=== PATIENT | male | born 1985 | race African-American/Black ===

== ENCOUNTER 2019-05-24 10:59 | Emergency (ER) | payer MEDICAID ==
[2019-05-24] MEDS ORDERED: levETIRAcetam 500 MG/5 ML SDV ONE (11:00)
[2019-05-24] MEDS ORDERED: LORazepam 2 MG/ML SDV ONE ×2 (11:00→11:16)
[2019-05-24] MEDS ORDERED: 50% Dextrose in Water 50 ML Syringe ONE ×2 (11:00→13:09)
[2019-05-24] MEDS ORDERED: Succinylcholine 200 MG/10 ML MDV ONE (11:00)
[2019-05-24] MEDS ORDERED: Sodium Chloride 0.9% 100 ML IV ONE (11:00)
[2019-05-24] MEDS ORDERED: Adenosine 6 MG/2 ML SDV ONE (11:00)
[2019-05-24] MEDS ORDERED: Insulin Regular, Human 100 Units/ML 3 ML Vial ONE ×2 (11:00→13:06)
[2019-05-24] MEDS ORDERED: FOSPHENYTOIN 100 MG ONE (11:00)
[2019-05-24] MEDS ORDERED: [UNRECOGNIZED DRUG - OTHER] ONE (11:00)
[2019-05-24] MEDS ORDERED: Dextrose 5% in Water 250 ML IV ONE (11:00)
[2019-05-24] MEDS ORDERED: Atropine 0.1 MG/ML 10 ML Syringe ONE (11:00)
[2019-05-24] MEDS ORDERED: Sodium Chloride 0.9% 1,000 ML IV ONE (11:00)
[2019-05-24] MEDS ORDERED: Calcium Gluconate 10% 1 GM/10 ML SDV ONE ×2 (11:00→13:08)
[2019-05-24] MEDS ORDERED: Fosphenytoin 500 MG.PE/10 ML SDV ONE (11:00)
[2019-05-24] MEDS ORDERED: Lactated Ringers 1,000 ML IV ONE (11:00)
[2019-05-24] MEDS ORDERED: EPINEPHrine 1 MG/1 ML Amp ONE (11:00)
[2019-05-24] MEDS ORDERED: Dextrose 5% in Water 100 ML IV ONE (11:00)
[2019-05-24] MEDS ORDERED: Norepinephrine 4 MG/4 ML SDV ONE (11:00)
[2019-05-24] MEDS ORDERED: Sodium Bicarbonate 8.4% 50 MEQ/50 ML SDV ONE (11:00)
[2019-05-24] MEDS ORDERED: Adenosine 12 MG/4 ML SDV ONE ×2 (11:00→11:37)
[2019-05-24] MEDS ORDERED: LORazepam 2 MG/ML SDV IVPUSH ONE ×2 (11:16→11:19)
[2019-05-24] MEDS ORDERED: Sodium Chloride 0.9% 10 ML Syringe FLUSH PRN (11:17)
[2019-05-24] MEDS ORDERED: Sodium Chloride 0.9% 1,000 ML IV SCH (11:30)
[2019-05-24] MEDS ORDERED: Adenosine 6 MG/2 ML SDV IVPUSH ONE (11:33)
--- NOTE | 2019-05-24 12:29 | PCM.SN ---
- Free Text/Narrative Note: 1155 called to [facility] for emergency intubation #8.0 GlideScope Direct visualization of cords MARTITAE NG placed out of room at 1226
[2019-05-24] MEDS ORDERED: Calcium Gluconate 10% 1 GM/10 ML SDV IVPUSH ONE (13:02)
[2019-05-24] MEDS ORDERED: Sodium Bicarbonate 8.4% 50 MEQ/50 ML Syringe IVPUSH ONE (13:03)
[2019-05-24] MEDS ORDERED: 50% Dextrose in Water 50 ML Syringe IVPUSH ONE (13:03)
[2019-05-24] MEDS ORDERED: Insulin Regular, Human 100 Units/ML 3 ML Vial IV ONE (13:04)
[2019-05-24] MEDS ORDERED: Albuterol 0.083% 2.5 MG/3 ML Neb Soln NEB ONE (13:05)
[2019-05-24] MEDS ORDERED: Albuterol 0.083% 2.5 MG/3 ML Neb Soln ONE (13:08)
--- NOTE | 2019-05-24 16:00 | EDM.PDOC ---
ED HPI GENERAL MEDICAL PROBLEM - General Chief Complaint: Neurological Problem Stated Complaint: [facility] Time Seen by Provider: 05/24/19 11:13 Source of Information: Reports: Patient, EMS, Police History Limitations: Reports: No Limitations - History of Present Illness INITIAL COMMENTS - FREE TEXT/NARRATIVE: The patient came by [facility] from the long term for withdrawal symptoms. The patient was arrested early this morning at 2am and his breathalizer was 0.21. He started getting anxious this morning and shaking and his heart rate was increasing. He was also diaphoretic. When he arrived to the ER his heart rate was around 200. He was anxious and still shaking. He felt short of breath but he had no chest pain. He had no abdominal pain, nausea or vomiting. He denies having a seizure history or problems with is heart. Onset: Gradual Duration: Hour(s): Severity: Severe Improves with: Reports: None Worsens with: Reports: None Associated Symptoms: Reports: Shortness of Breath. Denies: Chest Pain, Cough, Fever/Chills, Headaches, Loss of Appetite, Nausea/Vomiting ED ROS GENERAL - Review of Systems Review Of Systems: See Below Constitutional: Reports: Weakness HEENT: Reports: No Symptoms Respiratory: Reports: Shortness of Breath. Denies: Cough Cardiovascular: Reports: Palpitations. Denies: Chest Pain Endocrine: Reports: No Symptoms GI/Abdominal: Reports: No Symptoms - Physical Exam Exam: See Below Exam Limited By: Altered Mental Status (Did not answer many questions) General Appearance: Alert, Moderate Distress Ears: Normal External Exam Nose: Normal Inspection Head Exam: Atraumatic, Normocephalic Neck: Normal Inspection Respiratory/Chest: No Respiratory Distress, Lungs Clear, Normal Breath Sounds Cardiovascular: No Edema, No Murmur, Tachycardia GI/Abdominal: Soft, Non-Tender, No Organomegaly, No Mass Neuro Exam (Abbreviated): Alert, No Motor/Sensory Deficits, Other (Slightly confused) EKG INTERPRETATION EKG Date: 05/24/19 Time: 11:37 Rhythm: Other (SVT) Rate (Beats/Min): 189 Benedict: Normal P-Wave: Present QRS: Normal ST-T: Normal QT: Normal Course - Orders/Labs/Meds Orders: Active Orders 24 hr Category Date Time Status Cardiac Monitoring [RC] . DIRECTED Care 05/24/19 11:17 Active EKG Documentation Completion [RC] STAT Care 05/24/19 11:18 Active Oxygen Therapy [RC] PRN Care 05/24/19 11:17 Active Peripheral IV Care [RC] . DIRECTED Care 05/24/19 11:17 Active RT Aerosol Therapy [RC] ASDIRECTED Care 05/24/19 13:05 Active Sodium Chloride 0.9% [Normal Saline] 1,000 ml Med 05/24/19 11:30 Active IV .BOLUS Sodium Chloride 0.9% [Saline Flush] Med 05/24/19 11:17 Active 10 ml FLUSH ASDIRECTED PRN Peripheral IV Insertion Adult [OM.PC] Stat Oth 05/24/19 11:17 Ordered Medication Orders Sodium Chloride (Normal Saline) 1,000 mls @ 1,000 mls/hr IV .BOLUS APOLINAR Sodium Chloride (Saline Flush) 10 ml FLUSH ASDIRECTED PRN PRN Reason: Keep Vein Open Labs: Laboratory Tests 05/24/19 05/24/19 05/24/19 Range/Units 12:13 12:15 12:15 WBC 6.16 (4.23-9.07) K/mm3 RBC 4.03 L (4.63-6.08) M/mm3 Hgb 13.4 L (13.7-17.5) gm/L Hct 41.4 (40.1-51.0) % MCV 102.7 H (79.0-92.2) fl MCH 33.3 H (25.7-32.2) pg MCHC 32.4 (32.2-35.5) g/dl RDW Std Deviation 46.6 H (35.1-43.9) fL Plt Count 246 (163-337) K/mm3 MPV 9.8 (9.4-12.3) fl Neut % (Auto) 79.5 H (34.0-67.9) % Lymph % (Auto) 11.7 L (21.8-53.1) % Pacific % (Auto) 3.4 L (5.3-12.2) % Eos % (Auto) 0.5 L (0.8-7.0) Baso % (Auto) 2.1 H (0.1-1.2) % Neut # (Auto) 4.90 (1.78-5.38) K/mm3 Lymph # (Auto) 0.72 L (1.32-3.57) K/mm3 Pacific # (Auto) 0.21 L (0.30-0.82) K/mm3 Eos # (Auto) 0.03 L (0.04-0.54) K/mm3 Baso # (Auto) 0.13 H (0.01-0.08) K/mm3 Manual Slide Review Abnormal smear Sodium 149 H (136-145) mEq/L Potassium 6.9 H* (3.5-5.1) mEq/L Chloride 109 H (98-107) mEq/L Carbon Dioxide 19 L (21-32) mEq/L Anion Gap 27.9 H (5-15) BUN 16 (7-18) mg/dL Creatinine 1.9 H (0.7-1.3) mg/dL Est Cr Clr Drug Dosing TNP Estimated GFR (MDRD) 49 (>60) mL/min BUN/Creatinine Ratio 8.4 L (14-18) Glucose 43 L (74-106) mg/dL Calcium 7.7 L (8.5-10.1) mg/dL Magnesium 2.2 (1.8-2.4) mg/dl Total Bilirubin 0.2 (0.2-1.0) mg/dL AST 87 H (15-37) U/L ALT 37 (16-63) U/L Alkaline Phosphatase 84 (46-116) U/L Troponin I 0.684 H* (0.00-0.056) ng/mL Total Protein 6.7 (6.4-8.2) g/dl Albumin 3.3 L (3.4-5.0) g/dl Globulin 3.4 gm/dL Albumin/Globulin Ratio 1.0 (1-2) TSH 3rd Generation (0.358-3.74) uIU/mL Urine Opiates Screen Negative (UVWNKY=037) Ur Buprenorphine Scrn Negative (CUTOFF=10) Ur Oxycodone Screen Negative (JSI8GS=384) Urine Methadone Screen Negative (JML6QA=031) Ur Propoxyphene Screen Negative (MSGDLY=723) Ur Barbiturates Screen Negative (LQALXY=920) Ur Tricyclics Screen Negative (ZXCAPJ=547) Ur Phencyclidine Scrn Negative (CUTOFF=25) Ur Amphetamine Screen Presumptive positive H (JAEALI=960) U Methamphetamines Scrn Presumptive positive H (FQARQO=581) U Benzodiazepines Scrn Negative (JKJODP=716) U Cocaine Metab Screen Presumptive positive H (DBNCXL=498) U Marijuana (THC) Screen Presumptive positive H (CUTOFF=50) Ethyl Alcohol 0.03 (0.00) gm% 05/24/19 Range/Units 12:15 WBC (4.23-9.07) K/mm3 RBC (4.63-6.08) M/mm3 Hgb (13.7-17.5) gm/L Hct (40.1-51.0) % MCV (79.0-92.2) fl MCH (25.7-32.2) pg MCHC (32.2-35.5) g/dl RDW Std Deviation (35.1-43.9) fL Plt Count (163-337) K/mm3 MPV (9.4-12.3) fl Neut % (Auto) (34.0-67.9) % Lymph % (Auto) (21.8-53.1) % Pacific % (Auto) (5.3-12.2) % Eos % (Auto) (0.8-7.0) Baso % (Auto) (0.1-1.2) % Neut # (Auto) (1.78-5.38) K/mm3 Lymph # (Auto) (1.32-3.57) K/mm3 Pacific # (Auto) (0.30-0.82) K/mm3 Eos # (Auto) (0.04-0.54) K/mm3 Baso # (Auto) (0.01-0.08) K/mm3 Manual Slide Review Sodium (136-145) mEq/L Potassium (3.5-5.1) mEq/L Chloride (98-107) mEq/L Carbon Dioxide (21-32) mEq/L Anion Gap (5-15) BUN (7-18) mg/dL Creatinine (0.7-1.3) mg/dL Est Cr Clr Drug Dosing Estimated GFR (MDRD) (>60) mL/min BUN/Creatinine Ratio (14-18) Glucose (74-106) mg/dL Calcium (8.5-10.1) mg/dL Magnesium (1.8-2.4) mg/dl Total Bilirubin (0.2-1.0) mg/dL AST (15-37) U/L ALT (16-63) U/L Alkaline Phosphatase (46-116) U/L Troponin I (0.00-0.056) ng/mL Total Protein (6.4-8.2) g/dl Albumin (3.4-5.0) g/dl Globulin gm/dL Albumin/Globulin Ratio (1-2) TSH 3rd Generation 3.439 (0.358-3.74) uIU/mL Urine Opiates Screen (OIABFL=751) Ur Buprenorphine Scrn (CUTOFF=10) Ur Oxycodone Screen (FQL5OQ=902) Urine Methadone Screen (CBT5XP=931) Ur Propoxyphene Screen (ROMIQH=275) Ur Barbiturates Screen (QHJZBX=763) Ur Tricyclics Screen (UKJNAV=822) Ur Phencyclidine Scrn (CUTOFF=25) Ur Amphetamine Screen (BUHPTZ=967) U Methamphetamines Scrn (BVJWZE=644) U Benzodiazepines Scrn (QQSDGB=344) U Cocaine Metab Screen (JBGFWQ=330) U Marijuana (THC) Screen (CUTOFF=50) Ethyl Alcohol (0.00) gm% Meds: Medications Generic Name Dose Route Start Last Admin Trade Name Freq PRN Reason Stop Dose Admin Sodium Chloride 1,000 mls @ 1,000 mls/hr 05/24/19 11:30 Normal Saline IV .BOLUS APOLINAR Sodium Chloride 10 ml 05/24/19 11:17 Saline Flush FLUSH ASDIRECTED PRN Keep Vein Open Discontinued Medications Generic Name Dose Route Start Last Admin Trade Name Freq PRN Reason Stop Dose Admin Adenosine 6 mg 05/24/19 11:33 Adenocard IVPUSH 05/24/19 11:34 NOW ONE Adenosine Confirm 05/24/19 11:37 Adenocard Administered 05/24/19 11:38 Dose 12 mg .ROUTE .STK-MED ONE Albuterol 2.5 mg 05/24/19 13:05 05/24/19 13:36 Proventil Neb Soln NEB 05/24/19 13:06 2.5 mg ONETIME ONE Administration Albuterol Confirm 05/24/19 13:08 05/24/19 13:36 Proventil Neb Soln Administered 05/24/19 13:09 Not Given Dose 2.5 mg .ROUTE .STK-MED ONE Calcium Gluconate 1 gm 05/24/19 13:02 Calcium Gluconate IVPUSH 05/24/19 13:03 ONETIME ONE Calcium Gluconate Confirm 05/24/19 13:08 Calcium Gluconate Administered 05/24/19 13:09 Dose 1 gm .ROUTE .STK-MED ONE Dextrose/Water 50 ml 05/24/19 13:03 Dextrose 50% In Water IVPUSH 05/24/19 13:04 ASDIRECTED ONE Dextrose/Water Confirm 05/24/19 13:09 Dextrose 50% In Water Administered 05/24/19 13:10 Dose 50 ml .ROUTE .STK-MED ONE Levetiracetam 3,000 mg/ Sodium 130 mls @ 400 mls/hr 05/24/19 13:03 Chloride IV 05/24/19 13:17 ONETIME ONE Insulin Human Regular 10 unit 05/24/19 13:04 Humulin R IV 05/24/19 13:05 ONETIME ONE Insulin Human Regular Confirm 05/24/19 13:06 Humulin R Administered 05/24/19 13:07 Dose 300 unit .ROUTE .STK-MED ONE Lorazepam 1 mg 05/24/19 11:16 Ativan IVPUSH 05/24/19 11:17 ONETIME ONE Lorazepam Confirm 05/24/19 11:16 Ativan Administered 05/24/19 11:17 Dose 2 mg .ROUTE .STK-MED ONE Lorazepam 1 mg 05/24/19 11:19 Ativan IVPUSH 05/24/19 11:20 ONETIME ONE Sodium Bicarbonate 100 meq 05/24/19 13:03 Sodium Bicarbonate 8.4% IVPUSH 05/24/19 13:04 ONETIME ONE - Re-Assessments/Exams Free Text/Narrative Re-Assessment/Exam: 05/24/19 16:01 I ordered oxygen, IV NS 1L bolus, EKG, ativan 1mg IV, and labs. The patient's heart rate was elevated. I gave him some ativan and fluids. He started to shake more so I gave him more ativan. He continued to have the rapid heart rate and shaking so I ordered more ativan and we tried adenosine 6mg and then 12mgs. There was no affect. His QRS did widen at one time and he started to have a generalized seizure. I ordered a few more doses of ativan to a total of 6mg IV. I did synchronize cardiovert him twice to try to get him out of the wide complex tachycardia. That slowed him down some into the 150s but he would go right back up. The patient was move to one of our resuscitation bays and I had my [employer] intubate the patient. Using succinylcholine. He intubated without difficulty. An NG tube was placed with over 500mls of dark fluid out. A brownlee cath was also placed. 05/24/19 16:07 I ordered some phosphenytoin for the seizures. It did appear the seizures did stop. His blood pressure did start to go down. I ordered some levophed. His heart rate then started to go down and we lost a pulse. CPR was started and his pulse came back. He was in a wide complex tachycardia. I ordered an amiodarone bolus and then drip. His pressures went down again and he last a pulse again so we started CPR and we got a pulse back. The patient got a total of 2L of NS and 2L of LR. His WBC was normal. His Hgb was 13.4. His Na was elevated at 149. His K was elevated at 6.9. He was given calcium gluconate 1 gram, 100meq of sodium bicarb, insulin and D50, and an albuterol treatment. His pressures were still low so he was given more levophed. I called [facility] and talked with the critical care doctor and he accepted the patient. He did want us to give him some keppra before he left. [employer] flight crew came to fly the patient by plane. Later the police said the patient may have taken more meth in an attempt to hide it. Critical care time is 3 hours. Departure - Departure Time of Disposition: 16:20 Disposition: DC/Tfer to Acute Hospital 02 Condition: Critical Clinical Impression: Methamphetamine intoxication, Cardiac arrest, Seizure, Hyperkalemia Drug overdose Qualifiers: Encounter type: initial encounter Injury intent: accidental or unintentional Qualified Code(s): T50.901A - Poisoning by unspecified drugs, medicaments and biological substances, accidental (unintentional), initial encounter Cocaine intoxication Qualifiers: Complication of substance-induced condition: uncomplicated Qualified Code(s): F14.920 - Cocaine use, unspecified with intoxication, uncomplicated Alcohol intoxication Qualifiers: Complication of substance-induced condition: uncomplicated Qualified Code(s): F10.920 - Alcohol use, unspecified with intoxication, uncomplicated Hypotension Qualifiers: Hypotension type: other hypotension type Qualified Code(s): I95.89 - Other hypotension - Discharge Information Referrals: PCP,None [Primary Care Provider] - - My Orders Last 24 Hours: My Active Orders 05/24/19 11:17 Cardiac Monitoring [RC] . DIRECTED Oxygen Therapy [RC] PRN Peripheral IV Care [RC] . DIRECTED Sodium Chloride 0.9% [Saline Flush] 10 ml FLUSH ASDIRECTED PRN Peripheral IV Insertion Adult [OM.PC] Stat 05/24/19 11:18 EKG Documentation Completion [RC] STAT 05/24/19 11:30 Sodium Chloride 0.9% [Normal Saline] 1,000 ml IV .BOLUS - Assessment/Plan Last 24 Hours: My Active Orders 05/24/19 11:17 Cardiac Monitoring [RC] . DIRECTED Oxygen Therapy [RC] PRN Peripheral IV Care [RC] . DIRECTED Sodium Chloride 0.9% [Saline Flush] 10 ml FLUSH ASDIRECTED PRN Peripheral IV Insertion Adult [OM.PC] Stat 05/24/19 11:18 EKG Documentation Completion [RC] STAT 05/24/19 11:30 Sodium Chloride 0.9% [Normal Saline] 1,000 ml IV .BOLUS
== END 2019-05-24 14:21 ==
LOC: JD.ED 10:59
DX: I46.9 Cardiac arrest, cause unspecified (principal); A41.9 Sepsis, unspecified organism; I95.89 Other hypotension; F10.120 Alcohol abuse with intoxication, uncomplicated; F14.120 Cocaine abuse with intoxication, uncomplicated; E87.5 Hyperkalemia; F15.129 Other stimulant abuse with intoxication, unspecified
CPT/HCPCS: 31500; 36415; 43752; 51702; 80053; 80306; 83735; 84443; 84484; 85025; 92950; 92960; 93005; 94640; 96361; 96365; 96366; 96374; 96375; 96376; 99291; 99292; G0480; J0153; J0171; J0282; J0330; J0461; J0610; J1815-GY; J1953; J2060; J7030; J7040; J7060; J7120; Q2009